=== PATIENT | female | born 1970 | race Caucasian/White ===

== ENCOUNTER 2020-11-21 16:50 | Emergency (ER) | payer OTHER, SELFPAY ==
--- NOTE | ~2020-11-21 | XR_ITS ---
XR chest 1V portable DATE: 11/21/2020 19:33 INDICATION: Cough and fever for one week. TECHNIQUE: Portable AP chest on 11/21/2020 at 1934 hours COMPARISON: None FINDINGS: Normal heart size. No hilar or mediastinal enlargement. The lungs are clear of infiltrate o r consolidation. No pleural effusion or pulmonary vascular congestion or pneumothorax. Included skeletal structures are unremarkable. IMPRESSION: No active cardiopulmonary disease Reviewed, dictated and finalized at location A.
[2020-11-21 17:24] VITALS: BP 136/57; PULSE 80; RESP 16; TEMP 36.5; O2SAT 100
--- NOTE | 2020-11-21 20:10 | ED.GENADULT ---
HPI - General Adult General Chief complaint: Upper Respiratory Infection Stated complaint: Cough Time Seen by Provider: 11/21/20 19:17 Source: patient Mode of arrival: ambulatory Limitations: no limitations History of Present Illness HPI narrative: Patient is a 50-year-old female who presents to emergency department with acute onset of upper respiratory symptoms over the last several days congestion rhinorrhea and allergy-like symptoms on onset and is now having cough getting up some phlegm also notes achiness patient denies vomiting patient notes that she has had one Covid shot at this point on arrival patient does not appear distressed patient has not been seen for this complaint Related Data Home Medications Medication Instructions Recorded Confirmed levothyroxine 11/21/20 sertraline mg 11/21/20 Allergies Allergy/AdvReac Type Severity Reaction Status Date / Time povidone-iodine Allergy Rash Verified 11/21/20 19:17 [From Betadine] soap [From Betadine] Allergy Rash Verified 11/21/20 19:17 Sulfa (Sulfonamide Allergy Migraine Verified 11/21/20 19:17 Antibiotics) Review of Systems Review of Systems: All systems reviewed & are unremarkable except as noted in HPI and below PMFSH Social History Social History (Updated 11/21/20 @ 20:12 by Eliazar Jurado PA-C) Smoking status: Never smoker Exam Narrative: Exam Narrative: GENERAL: Well-appearing, well-nourished, and in no acute distress. HEAD: Normocephalic, atraumatic. EYES: PERRLA and EOMI. ENT: Nares clear, no rhinorrhea or epistaxis. Mucous membranes moist. Bilateral TMs pearly clark nonbulging NECK: Supple. No adenopathy or masses. CHEST: Clear to auscultation. No respiratory distress. No wheezes rales or rhonchi HEART: Regular rate and rhythm. No murmur heard. Normal peripheral pulses. SKIN: Warm, dry, no rash. NEURO: No focal deficits. Alert and oriented x3. PSYCH: Normal mood and affect. Course Course Emergency Course: Patient afebrile nontoxic-appearing no distress negative chest radiograph negative influenza negative strep swab for Covid will be sent home for outpatient follow-up treated symptomatically felt appropriate for outpatient reevaluation Vital Signs Vital signs: Vital Signs Temperature 97.7 F 11/21/20 17:24 Pulse Rate 80 11/21/20 17:24 Respiratory Rate 16 11/21/20 17:24 Blood Pressure 136/57 L 11/21/20 17:24 Pulse Oximetry 100 11/21/20 17:24 Temperature 97.7 F 11/21/20 17:24 Pulse Rate 80 11/21/20 17:24 Respiratory Rate 16 11/21/20 17:24 Blood Pressure 136/57 L 11/21/20 17:24 Pulse Oximetry 100 11/21/20 17:24 Medical Decision Making MDM Narrative Medical decision making narrative: Patient presented with upper respiratory infections for the last several days felt appropriate for outpatient reevaluation will be discharged with outpatient follow-up. Patient made aware that she will have to follow with her primary care for her Covid result Vital Signs Vital Signs: Vital Signs Temperature 97.7 F 11/21/20 17:24 Pulse Rate 80 11/21/20 17:24 Respiratory Rate 16 11/21/20 17:24 Blood Pressure 136/57 L 11/21/20 17:24 Pulse Oximetry 100 11/21/20 17:24 Temperature 97.7 F 11/21/20 17:24 Pulse Rate 80 11/21/20 17:24 Respiratory Rate 16 11/21/20 17:24 Blood Pressure 136/57 L 11/21/20 17:24 Pulse Oximetry 100 11/21/20 17:24 Lab Data Labs: Lab Results 11/21/20 Range/Units 19:38 SARS-CoV-2 RNA (RT-PCR) Pending Influenza A Screen Negative Reference Range: Negative Influenza B Screen Negative Reference Range: Negative Strep Screen Presumptive Negative *(Reference Range: Negative)* Discharge Plan Discharge Clinical Impression: Acute upper respiratory infection
[2020-11-22 17:42] LABS: SARS-CoV-2 RNA PCR Negative
== END 2020-11-21 20:22 | disposition home or self-care (01) ==
PROVIDERS: Emergency Medicine Emergency Medical Services; Emergency Provider Emergency Medicine; PCP Internal Medicine
DX: J06.9 Acute upper respiratory infection, unspecified (principal); Z20.822 Contact with and (suspected) exposure to COVID-19
CPT/HCPCS: 71045; 87081; 87804; 87880; 99283; C9803; U0003; U0005

== ENCOUNTER 2021-07-23 13:04 | Emergency (ER) | payer BC, SELFPAY ==
--- NOTE | ~2021-07-23 | XR_ITS ---
EXAMINATION: XR chest 1V portable EXAM DATE: 07/23/2021 15:54 INDICATION: Cough and nasal congestion. Fever 3 days. TECHNIQUE: Portable AP frontal chest x-ray was obtained. Comparison is made to prior examination from 11/21/2020. FINDINGS: The lungs are clear. There are no pleural effusions. Cardiac silhouette is prominent but magnified on this AP technique. There is no pneumothorax suspected. The bones and soft tissues are unremarkable. IMPRESSION: No acute cardiopulmonary findings. Reviewed, dictated and finalized at location B. [employer]
[2021-07-23 13:06] VITALS: BP 150/86; PULSE 85; RESP 20; TEMP 36.4; O2SAT 100
[2021-07-23 15:20] VITALS: BP 150/89; PULSE 81; RESP 16; TEMP 37.6; O2SAT 100
--- NOTE | 2021-07-23 15:52 | ED.GENADULT ---
HPI - General Adult General Chief complaint: Upper Respiratory Infection Stated complaint: Fever,cough Time Seen by Provider: 07/23/21 15:37 Source: patient Mode of arrival: ambulatory Limitations: no limitations History of Present Illness HPI narrative: Patient presents with runny nose, sinus congestion, postnasal discharge, sore throat, headache, body aches started 4 days ago. Patient is fully vaccinated for COVID-19, last vaccination December 2020. Related Data Home Medications Medication Instructions Recorded Confirmed levothyroxine 11/21/20 sertraline mg 11/21/20 Allergies Allergy/AdvReac Type Severity Reaction Status Date / Time povidone-iodine Allergy Rash Unverified 11/21/20 19:17 [From Betadine] soap [From Betadine] Allergy Rash Unverified 11/21/20 19:17 Sulfa (Sulfonamide Allergy Migraine Unverified 11/21/20 19:17 Antibiotics) Review of Systems Review of Systems: CONSTITUTIONAL: Denies fever, chills, or sweats. EYES: Denies visual changes, redness, or discharge. ENT: Denies rhinorrhea, congestion, sore throat, or otalgia. CARDIOVASCULAR: Denies chest pain, palpitations, or edema. RESPIRATORY: Denies cough or dyspnea. GASTROINTESTINAL: Denies abdominal pain, nausea, vomiting, or diarrhea. GENITOURINARY: Denies dysuria or hematuria. SKIN: Denies rash or itching. MUSCULOSKELETAL: Denies back pain, joint pain, or myalgia. NEUROLOGIC: Denies headache, numbness, or weakness. PSYCHIATRIC: Denies anxiety or depression. PMFSH Social History Social History Smoking status: Never smoker Exam Narrative: General appearance: Well-developed, well-nourished Skin: Normal color Head: Normocephalic, nontraumatic Eyes: Clear conjunctiva ENT: Oropharynx normal, ears normal, nose normal Neck: Supple, nontender Chest and respiratory: Airway patent, no respiratory distress, no accessory muscle use Heart: Regular rate/rhythm Abdomen: Soft, nontender, no organomegaly, quiet bowel sounds Vascular: Normal peripheral pulses, normal capillary refill. Musculoskeletal: Normal range of motion, nontender back Neurologic: Alert and oriented ?3, [employer] is normal as tested, no gross motor deficit Course Course Emergency Course: Stable Vital Signs Vital signs: Vital Signs Temperature 36.4 C 07/23/21 13:06 Pulse Rate 85 07/23/21 13:06 Respiratory Rate 20 07/23/21 13:06 Blood Pressure 150/86 H 07/23/21 13:06 Pulse Oximetry 100 07/23/21 13:06 Temperature 37.6 C H 07/23/21 15:20 Pulse Rate 81 07/23/21 15:20 Respiratory Rate 16 07/23/21 15:20 Blood Pressure 150/89 H 07/23/21 15:20 Pulse Oximetry 100 07/23/21 15:20 Medical Decision Making MDM Narrative Medical decision making narrative: Patient presents with viral infection symptoms. Covid test, influenza test ordered. Chest x-ray ordered Differential Diagnosis Differential Diagnosis: Upper respiratory viral infection Vital Signs Vital Signs: Vital Signs Temperature 36.4 C 07/23/21 13:06 Pulse Rate 85 07/23/21 13:06 Respiratory Rate 20 07/23/21 13:06 Blood Pressure 150/86 H 07/23/21 13:06 Pulse Oximetry 100 07/23/21 13:06 Temperature 37.6 C H 07/23/21 15:20 Pulse Rate 81 07/23/21 15:20 Respiratory Rate 16 07/23/21 15:20 Blood Pressure 150/89 H 07/23/21 15:20 Pulse Oximetry 100 07/23/21 15:20 Critical Care Time Critical Care Time Critical Care Time: No Discharge Plan Discharge Clinical Impression: Upper respiratory infection Qualifiers: URI type: unspecified viral URI Qualified Code(s): J06.9 - Acute upper respiratory infection, unspecified Patient Di
[2021-07-23 16:40] VITALS: BP 161/86; PULSE 72; RESP 18; TEMP 37.7; O2SAT 99
[2021-07-24 14:30] LABS: SARS-CoV-2 RNA PCR Positive
== END 2021-07-23 16:43 | disposition home or self-care (01) ==
PROVIDERS: Emergency Provider Emergency Medicine; PCP Internal Medicine
DX: U07.1 COVID-19 (principal); J06.9 Acute upper respiratory infection, unspecified
CPT/HCPCS: 71045; 87804; 99283; C9803; U0003; U0005